=== PATIENT | male | born 1975 | race African-American/Black ===

== ENCOUNTER 2025-03-01 21:20 | Emergency (ER) | payer MEDICAID, OTHER ==
[~2025-03-01] VITALS: Ht 175.3 cm; Wt 90.0 kg
[2025-03-01 21:37] VITALS: BP 164/104; PULSE 115; RESP 20; TEMP 36.9; O2SAT 98
[2025-03-01] MEDS: LORAZEPAM 2MG/ML UD SYRINGE IM NR (22:00)
[2025-03-01] MEDS: DIPHENHYDRAMINE 50MG/ML VIAL IM ONE (22:59)
[2025-03-01] MEDS: HALOPERIDOL LACTATE 5MG/ML VIAL IM ONE (22:59)
[2025-03-01 23:21] LABS: BASOPHILS % 0.5 % (0.0-2.0); EOSINOPHILS % 0.7 % (0.0-5.0); HEMATOCRIT. 45.8 % (42.0-52.0); HEMOGLOBIN. 15.4 g/dL (14.0-18.0); LYMPHOCYTES % 21.3 % (20.0-50.0); MEAN PLATELET VOLUME 10.2 fl (7.4-10.4); MONOCYTES % 10.2 % (2.0-8.0); NEUTROPHILS % 67.3 % (40.0-76.0); PLATELET 125 x1000/uL (130-400); RED BLOOD CELL COUNT 4.38 mill/uL (4.7-6.1); RED CELL DISTRIBUTION WIDTH 15.6 % (11.6-14.6)
[2025-03-01 23:27] LABS: INR 1.2
[2025-03-01 23:30] LABS: CREATININE 1.6 mg/dL (0.6-1.3); ETHANOL BLOOD 53 mg/dL (<10); UREA NITROGEN BLOOD 20 mg/dL (9-23)
[2025-03-01 23:31] LABS: ASPARTATE AMINOTRANSFERASE 32 IU/L (<34)
[2025-03-01 23:32] LABS: BILIRUBIN DIRECT 0.3 mg/dL (<=3.0); BILIRUBIN TOTAL 0.9 mg/dL (0.1-1.0); PROTEIN TOTAL 8.7 g/dL (6.0-8.3)
== END 2025-03-02 01:30 | disposition home or self-care (01) ==
LOC: EDBD 21:20 → ER 21:20
DX: F10.129 Alcohol abuse with intoxication, unspecified (principal); I48.91 Unspecified atrial fibrillation; I10 Essential (primary) hypertension; V89.2XXA Person injured in unspecified motor-vehicle accident, traffic, initial encounter; Y93.89 Activity, other specified; Y92.410 Unspecified street and highway as the place of occurrence of the external cause; Y99.8 Other external cause status; Y90.2 Blood alcohol level of 40-59 mg/100 ml
CPT/HCPCS: 80076; 80048; 80320; 85025; 85610; 85730; 36415; 70450; 72125; 93005; 96372; 99285; 71045; J1200; J1630; J2060; G0480